=== PATIENT | female | born 1990 | race African-American/Black ===

== ENCOUNTER 2024-05-18 04:18 | Emergency (ER) | payer SELFPAY ==
[2024-05-18 04:51] LABS: BASOPHILS ABSOLUTE AUTO 0.04 K/uL (0.00-0.10); BASOPHILS PERCENT AUTO 0.7 % (0.1-1.3); EOSINOPHILS PERCENT AUTO 0.3 % (0.0-5.4); HEMATOCRIT 32.8 % (34.3-46.0); HEMOGLOBIN 11.4 g/dL (11.2-15.5); IMMATURE GRAN PERCENT AUTO 0.3 % (0.0-0.7); LYMPHOCYTES ABSOLUTE AUTO 0.84 K/uL (0.8-3.3); MEAN CORPUSCULAR HGB CONC 34.8 g/dL (31.6-35.5); MEAN CORPUSCULAR VOLUME 89.1 fL (81.4-99.0); NEUTROPHILS ABSOLUTE AUTO 4.48 K/uL (1.0-7.6); NEUTROPHILS PERCENT AUTO 74.7 % (40.0-78.1); PLATELET COUNT,PLT 216 K/uL (130-375); RED BLOOD CELL COUNT 3.68 M/uL (3.77-5.24)
[2024-05-18] MEDS: Albuterol/Ipratropium 3.0-0.5 MG/3 ML Neb Soln NEB ONE (04:53)
[2024-05-18 04:55] LABS: EOSINOPHILS ABSOLUTE AUTO 0.02 K/uL (0.00-0.40); IMMATURE GRAN ABSOLUTE AUTO 0.02 K/uL (0.00-0.23)
[2024-05-18 05:11] LABS: BLOOD UREA NITROGEN,BUN 6 mg/dL (7-18); CALCIUM 8.2 mg/dL (8.5-10.1); CARBON DIOXIDE,CO2 26 mmol/L (21-32); CHLORIDE,CL 101 mmol/L (100-108); CREATININE 0.7 mg/dL (0.6-1.0); EST CRCL DRUG DOSING (CG) 99.63 mL/min; ESTIMATED GFR 118 mL/min (>60); GLUCOSE RANDOM 89 mg/dL (74-106); SODIUM,NA 137 mmol/L (140-148)
[2024-05-18 05:18] LABS: ANION GAP 12.9 mmol/L (5.0-14.0); POTASSIUM,K 2.9 mmol/L (3.6-5.2); TROPONIN I HIGH SENSITIVITY < 4.0 pg/mL (<=60.3)
[2024-05-18] MEDS: Ketorolac 30 MG/ML SDV IM ONE (05:56)
[2024-05-18] MEDS: Potassium Chloride 20 MEQ Tab.ER PO ONE (06:08)
== END 2024-05-18 06:22 | disposition home or self-care (01) ==
LOC: JP.ED 04:18
DX: B34.9 Viral infection, unspecified (principal); E87.6 Hypokalemia; F17.210 Nicotine dependence, cigarettes, uncomplicated
CPT/HCPCS: 36415; 71046; 71046-26; 80048; 84484; 85025; 87428-QW; 93005; 93010; 94640; 96372; 99284; 99285; A9270-GY; J1885; J7620